=== PATIENT | female | born 1995 | race Caucasian/White ===

== ENCOUNTER 2022-08-07 01:05 | Day surgery (SDC) | payer BC, SELFPAY ==
[2022-07-24 12:44] VITALS: BMI 22.1
--- NOTE | 2022-07-24 12:50 | PC.NURSE ---
Report to the Outpatient Waiting Room, entrance under the green pavilion located off [facility], at time 1130 on date 08/07/22. Planned Procedure Time: 1330. Time changes happen often and if your time is changed the preop area will call you the afternoon before. - You and your visitor will be asked to self-screen and do not enter if you have any COVID symptoms. - Only one visitor is requested with a max of two and NO children visitors are allowed at this time. - The patient visitor may be requested to leave or wait in car when not with patient due to distancing restrictions. - A mask is REQUIRED within the hospital. Patients may have clear liquids (water, carbonated beverages, clear teas, apple juice) until 3 hours prior to surgery with a maximum of 20 ounces. - No food from midnight until time of surgery Take the following medications with a SIP of water the morning of surgery: N/A Medications to discontinue per physician: N/A Date to take last dose: N/A Please no make-up, nail indonesian, hairspray, perfume, deodorant, or body powder the day of surgery. No jewelry (including any body piercings) or valuables the day of surgery, leave them at home. Please take a shower or bath the night before, or the morning of, surgery with an antibacterial soap. Wear comfortable, loose fitting clothing. - Jewelry must be removed prior to entering the operating room. Rings and piercings that are not removed may be cut off. - The hospital will not accept responsibility for valuables. - Please leave all valuables, including medications, at home the day of surgery. If you are going home after surgery, a licensed reefer truck driver must drive you home. - NO public transportation without another adult if you receive anesthesia. - We recommend that an adult stay with you for 24 hours following discharge. - We also recommend that you do not drive, make important decision, drink alcoholic beverages, or take any drugs that were not prescribed by your health care provider for at least 24 hours after your discharge time. Follow any additional instructions given to you from your surgeon. If you or anyone in your household have experienced Covid symptoms in the past week, please notify your surgeon or the nurse liaison at the phone number below for possible testing. Telephone instructions given to PT - GUNNAR DALY and asked if any additional questions and then verbalized understanding. Patient advised to call surgeon office or pre surgery nurse liaison [phone] if any additional questions.
[2022-08-07] VITALS (9 sets, daily range): BP systolic 91–114; BP diastolic 47–66; PULSE 51–71; RESP 12–17; TEMP 36.2–37.1; O2SAT 100
[2022-08-07] MEDS: ACETAMINOPHEN 500 MG TABLET 1000 MG PO (11:47)
[2022-08-07] MEDS: LACTATED RINGERS 1,000 ML 30 ML IV CONT ×2 (12:08→14:52)
[2022-08-07] MEDS: KETOROLAC 15 MG/ML VIAL (*BKC) IV PUSH (12:10)
--- NOTE | 2022-08-07 13:21 | P.PNAN_ITS ---
Anes - Initial Pre Proc Eval Procedure: Operation Date: 08/07/22 13:30 Proposed Procedures p Laparoscopic Bilateral Salpingectomy, Right Ovarian Cystectomy - Scott Shahid MD Date/Time: 08/07/22 13:21 Surgeon: Scott Shahid MD Pre Op Diagnosis: cyst of ovary, sterilization Patient Data Age: 27 Gender: F Height: 1.73 m Weight: 61.8 kg Last Vital Signs Temp 98.7 F 08/07/22 11:42 Pulse 71 08/07/22 11:42 Resp 16 08/07/22 11:42 BP 114/66 08/07/22 11:42 Pulse Ox 100 08/07/22 11:42 O2 Del Method Room Air 08/07/22 11:42 Allergies Allergy/AdvReac Type Severity Reaction Status Date / Time No Known Allergies Allergy Verified 08/07/22 11:31 Home Medications Medication Instructions Recorded Confirmed Type L norgest/E estradiol-E estrad 1 tablet PO HS 07/24/22 08/07/22 History 0.15 mg-30 mcg (84)/10 mcg(7) tabs,3mos (Ashlyna) zonisamide 100 mg capsule 300 mg PO HS 07/24/22 08/07/22 History Patient hx anesthesia problems: other (took long time to awaken from tubal ligation) Family hx anesthesia problems: none Results Review: All pre-operative results and documents have been reviewed as part of the pre- operative evaluation. [facility] Social History Social History Smoking status: Never smoker Alcohol intake: never Substance use: never Substance use type: does not use Living arrangements: with friend(s) Spiritual care concerns: No Anes - Eval Final PreProcedure Day of Procedure 08/07/22 13:21 Patient weight: normal Heart: regular rate and rhythm Lungs: clear to auscultation Airway: Mallampati scale class II Neurological: alert and oriented Last oral intake: >/= 8 hours ASA classification: III Emergent: no Anesthetic plan: proceed Anesthesia type and monitoring: general ETT and standard monitoring Results Review: All pre-operative results and documents have been reviewed as part of the pre- operative evaluation. Informed Consent: The patient's anesthetic plan and its attendant risks and benefits were discussed with the patient/family/POA. Questions were solicited and answers provided to the satisfaction of the patient/family/POA.
--- NOTE | 2022-08-07 13:27 | PM.IMHP ---
H&P: HPI History of Present Illness Date/Time: 08/07/22 13:27 Chief Complaint: Pelvic pain Narrative: this patient is a 27-year-old female who has pelvic pain and right ovarian cyst. We have agreed to perform right ovarian cystectomy and bilateral salpingectomy. She understands the risks. she knows that injuries may occur that result in hospitalization, more surgery, severe illness. She understands that there is a risk of hemorrhage infection. She denies any nausea, vomiting, fever, chills. She denies any chest pain or shortness of breath. Review of Systems Review of Systems: All systems reviewed & are unremarkable except as noted in HPI and below Constitutional: Constitutional: Denies chills, Denies fatigue, Denies fever(s) and Denies weakness Eyes: Eyes: Denies blurry vision, Denies change in vision, Denies loss of peripheral vision, Denies loss of vision, Denies other visual disturbances and Denies eye pain ENT: Denies vertigo, Denies dizziness, Denies hearing loss, Denies mouth pain, Denies nasal obstruction, Denies neck mass and Denies neck pain Cardiovascular: Cardiovascular: Denies chest pain, Denies diaphoresis, Denies syncope, Denies leg edema and Denies dyspnea Respiratory: Respiratory: Denies chest congestion, Denies cough, Denies hemoptysis, Denies dyspnea and Denies wheezing Gastrointestinal: Gastrointestinal: Denies abdominal pain, Denies constipation, Denies diarrhea, Denies nausea and Denies vomiting Genitourinary: Genitourinary: Denies hematuria, Denies change in libido, Denies nocturia, Denies genital lesions, Denies flank pain and Denies urinary urgency Musculoskeletal: Musculoskeletal: Denies abnormal gait, Denies back pain, Denies myalgias, Denies arthralgias, Denies joint swelling, Denies muscle weakness and Denies neck pain Integumentary/Breasts: Skin/Breast: Denies swelling, Denies breast pain, Denies breast mass, Denies dry skin, Denies nipple discharge, Denies unusual bruising and Denies jaundice Neurologic: Denies Neuro-related abnormal movements, Denies Abnormal speech present, Denies abnormal gait, Denies behavioral changes, Denies confusion, Denies vertigo, Denies dizziness, Denies syncope, Denies loss of vision, Denies memory loss, Denies convulsions and Denies weakness Psychiatric: Psychiatric: Denies abnormal sleep pattern, Denies behavioral changes, Denies change in libido, Denies confusion, Denies depression, Denies anhedonia and Denies memory loss Endocrine: Endocrine: Reports no additional endocrine complaints, Denies change in libido and Denies fatigue Hematologic/Lymphatic: Hematologic/Lymphatic: Reports no additional hematologic/lymphatic complaints Allergic/Immunologic: Allergic/Immunologic: Reports no additional allergic/immunologic complaints and Denies wheezing PMF Social History Social History Smoking status: Never smoker Alcohol intake: never Substance use: never Substance use type: does not use Living arrangements: with friend(s) Spiritual care concerns: No Meds Home Medications and Allergies Home Medications Medication Instructions Recorded Confirmed Type L norgest/E estradiol-E estrad 1 tablet PO HS 07/24/22 08/07/22 History 0.15 mg-30 mcg (84)/10 mcg(7) tabs,3mos (Ashlyna) zonisamide 100 mg capsule 300 mg PO HS 07/24/22 08/07/22 History Allergies Allergy/AdvReac Type Severity Reaction Status Date / Time No Known Allergies Allergy Verified 08/07/22 11:31 Vital Signs Vital Signs - 24 hr 08/07/22 11:42 Temperature 98.7 F Pulse Rate 71 Respiratory Rate 16 Blood Pressure 114/66 Pulse Oximetry 100 Oxygen Delivery Room Air Exam Const: General: cooperative, healthy appearing, comfortable and no acute distress; No confusion Orientation/consciousness: oriented to person, oriented to place, oriented to time and No confusion HENMT: Head: normal to inspection Ears: external ears normal Face/Nose/Sinus: Normal external nose
--- NOTE | 2022-08-07 13:30 | WPDHPUPDATE1 ---
History and Physical Update Update Date/Time: 08/07/22 13:30 History and Physical has been reviewed, including an updated exam of the patient. There are NO changes in the patient's condition. Risks, benefits, and alternatives have been discussed and questions answered. Patient agrees to proceed with procedure.
[2022-08-07] MEDS: fentaNYL CITRATE INJ (*CRX) 100 MCG/2 ML VIAL 25 MCG IV PUSH ×5 (15:02→15:27)
--- NOTE | 2022-08-07 15:07 | W.PM.PROC2 ---
Procedure Note - Detailed Date of Procedure 08/07/22 Pre-op Diagnosis cyst of ovary, sterilization Post-op Diagnosis Other ( Hydrosalpinx, endometriosis) Procedure Performed laparoscopic bilateral salpingectomy with removal of hydrosalpinx. Surgeon Scott Shahid MD Anesthesia General Indications Pelvic pain, pelvic cyst Findings severe endometriosis with obliteration of posterior cul-de-sac, scarring of the adnexa bilaterally. Multiple implants throughout the posterior pelvis and its adnexa. Description of Procedure The patient was taken the operating room. She was prepped and draped in the dorsal lithotomy position after induction of general anesthesia. A 5 mm skin incision was made in the left upper quadrant of the abdominal skin. A 5 mm trocar was inserted the intra-abdominal cavity under direct visualization of the scope. Pneumoperitoneum was achieved. A 11 mm trocar was inserted in the left lower quadrant identical fashion. A 11 mm infraumbilical trocar was inserted in identical fashion as well. The bilateral fallopian tubes were removed. This was done by using a LigaSure cautery. The mesosalpinx adjacent to the tube was cauterized transected with LigaSure. This was initiated in the area the ovary and in a stepwise fashion moved medially to the area of the cornu of the uterus. Once there the fallopian tube was cauterized and transected. This was done in identical fashion on each side. The fallopian tubes were taken out through the left lower quadrant trocar site. The right ovary had to be cut into smaller segments to take out through the left lower quadrant trocar site. The hydrosalpinx on the right fallopian tube had to be drained. The pneumoperitoneum was reduced. The trocars removed. The skin was closed with subcuticular 4 Monocryl and covered with Dermabond. She was taken to cover stable condition. Sponge lap and needle counts were correct x2. Estimated Blood Loss 5 Urine Output -200.0 Drains No Packing No Pathology Yes Complications No immediate complications Condition Stable Disposition PACU
--- NOTE | 2022-08-07 15:08 | SUR.PHASEI ---
1500 - Dr. Jackman at bedside talking with pt
[2022-08-07] MEDS: oxyCODONE HCL (*CRX) 5 MG TAB IR PO (16:14)
== END 2022-08-07 17:28 | disposition home or self-care (01) ==
PROVIDERS: Visit Provider Obstetrics & Gynecology
PROC: (CPT 49320; principal; 2022-08-07 13:30)
DX: Z30.2 Encounter for sterilization (principal); N70.11 Chronic salpingitis; N80.329 Endometriosis of the posterior cul-de-sac, unspecified depth; N80.399 Endometriosis of the pelvic peritoneum, other specified sites, unspecified depth; N80.201 Endometriosis of right fallopian tube, unspecified depth
CPT/HCPCS: 58661; 88302; A9270; J1100; J1885; J2250; J2405; J2704; J2710; J3010; J7030; J7120